=== PATIENT | male | born 1990 | race Two or more races ===

== ENCOUNTER 2021-06-19 19:14 | Emergency (ER) | payer OTHER ==
[~2021-06-19] VITALS: Ht 167.6 cm; Wt 113.4 kg
[2021-06-19] MEDS ORDERED: ULTRAM50 MG PO (23:03)
== END 2021-06-19 23:22 | disposition home or self-care (01) ==
LOC: ER 19:14
DX: K63.89 Other specified diseases of intestine (principal)